=== PATIENT | female | born 1970 | race Caucasian/White ===

== ENCOUNTER → 2024-07-03 15:21 | Outpatient (BNVA) | payer OTHER, SELFPAY | PROVIDERS: PCP Nurse Practitioner Family; Visit Provider Nurse Practitioner | DX: M25.511 Pain in right shoulder (principal); M25.521 Pain in right elbow | CPT/HCPCS: 73030; 73080 ==

== ENCOUNTER 2024-07-23 06:00 | Outpatient (RCR) | payer OTHER, SELFPAY | END 2024-08-15 23:59 | disposition home or self-care (01) | LOC: SPT 06:00 | PROVIDERS: Visit Provider Nurse Practitioner | DX: M19.011 Primary osteoarthritis, right shoulder (principal) | CPT/HCPCS: 97161 ==